=== PATIENT | female | born 1990 | race Caucasian/White ===

== ENCOUNTER → 2021-01-17 | Outpatient (REF) | payer OTHER | LOC: M LAB REF 17:49 | PROVIDERS: ATTEND Nurse Practitioner Family | DX: Z12.4 Encounter for screening for malignant neoplasm of cervix (principal) ==

== ENCOUNTER → 2021-05-09 | Outpatient (CLI) | payer OTHER | LOC: M PLAIMG 10:29 | PROVIDERS: ATTEND Nurse Practitioner Family | DX: M54.50 Low back pain, unspecified (principal) ==